=== PATIENT | female | born 1980 | race Caucasian/White ===

== ENCOUNTER 2020-01-10 14:23 | Emergency (ER) | payer OTHER, SELFPAY ==
--- NOTE | 2020-01-10 14:27 | ED.GENADULT ---
HPI - General Adult General Chief complaint: Extremity Injury, Lower Stated complaint: Left leg pain Time Seen by Provider: 01/10/20 14:27 Source: patient Mode of arrival: ambulatory Limitations: no limitations History of Present Illness HPI narrative: 39-year-old female patient presents to the [facility] with complaints of left lower leg pain since this morning when she woke up. Patient states that most of the pain is behind the left knee. Patient states couple months ago she did fracture her left patella and injured her left ACL. Patient denies getting surgery at that time. Patient denies take anything for the pain since this morning. Patient states it hurts worse when trying to straighten it or walking on it. Patient denies any injury to the leg or the knee recently. Related Data Home Medications Medication Instructions Recorded Confirmed Unable to Obtain Home Medications 01/10/20 01/10/20 Allergies Allergy/AdvReac Type Severity Reaction Status Date / Time amoxicillin [From Amoxil] Allergy Swelling Verified 01/10/20 14:43 Sulfa (Sulfonamide Allergy Swelling Verified 01/10/20 14:44 Antibiotics) Review of Systems Review of Systems: Narrative: CONSTITUTIONAL: Denies fever, chills, or sweats. EYES: Denies visual changes, redness, or discharge. ENT: Denies rhinorrhea, congestion, sore throat, or otalgia. CARDIOVASCULAR: Denies chest pain, palpitations, or edema. RESPIRATORY: Denies cough or dyspnea. GASTROINTESTINAL: Denies abdominal pain, nausea, vomiting, or diarrhea. GENITOURINARY: Denies dysuria or hematuria. SKIN: Denies rash or itching. MUSCULOSKELETAL: Denies back pain, joint pain, or myalgia. Positive left lower leg pain NEUROLOGIC: Denies headache, numbness, or weakness. PSYCHIATRIC: Denies anxiety or depression. [facility] Past Medical History Medical History (Updated 01/10/20 @ 14:59 by NAVARRO Conde) Fracture of left patella With ACL injury Surgical History Surgical History (Updated 01/10/20 @ 14:55 by NAVARRO Conde) H/O: hysterectomy History of Social History Social History Gender identity (if verbalized by the patient): Female Comments At the time of my signature I agree with nursing past medical history, surgical, social, and family history. There is no relevant family history pertinent to the presenting complaint. Exam Narrative: Exam Narrative: GENERAL: Well-appearing, well-nourished, and in no acute distress. HEAD: Normocephalic, atraumatic. EYES: PERRLA and EOMI. ENT: Nares clear, no rhinorrhea or epistaxis. Mucous membranes moist. NECK: Supple. No lymphadenopathy CHEST: Clear to auscultation. No respiratory distress. HEART: Regular rate and rhythm. No murmur heard. Normal peripheral pulses. ABDOMEN: Soft, nontender, nondistended, normal active bowel sounds. EXTREMITIES: Patient is able to bear weight and ambulate but does have increased pain to the left lower leg and knee pain. No surface trauma, STS, or obvious effusion. Patient does have an obvious knot that is palpated to the posterior left knee. Patient does have tenderness to this area but more tenderness noted to the left posterior calf. There is swelling noted to the left lower leg from the knee downward as compared to the right lower leg. No obvious warmth or erythema is noted. The L knee is without obvious asymmetry or deformity when compared to the R knee. Patient is able to do deep knee bend with symmetry, pain when trying to fully extend knee, no pain with internal and external rotation. No tendernss to palpation of the patella, no effusion or ballottement. No tenderness over the infrapatellar tendon. No tenderness over the medial or lateral joint lone ot the medial or lateral tibial plateaus. no tenderness over the proximal fibular head. no tenderness, fullness, or mass of the popliteal fossa. No quadriceps tenderness. No laxity of the A
[2020-01-10 14:36] VITALS: BP 123/73; PULSE 82; RESP 16; TEMP 37.2; O2SAT 100
== END 2020-01-10 14:53 | disposition short-term general hospital (02) ==
PROVIDERS: Emergency Provider Nurse Practitioner Family
DX: M79.662 Pain in left lower leg (principal)
CPT/HCPCS: 99202; G0463

== ENCOUNTER 2020-01-10 15:09 | Emergency (ER) | payer OTHER, SELFPAY ==
--- NOTE | ~2020-01-10 | US_ITS ---
EXAMINATION: US venous doppler [facility] DATE: 01/10/2020 16:15 INDICATION: Left lower limb swelling. TECHNIQUE: Grayscale ultrasound images without and with compression and Doppler ultrasound images of the left lower extremity veins were obtained. COMPARISON: None. FINDINGS: The visualized portions of left common femoral vein, profunda (deep) femoral vein, femoral vein, popl iteal vein, peroneal veins, posterior tibial veins, and greater saphenous vein outflow are patent. Th ere is a small Cook's cyst. IMPRESSION: 1. No deep venous thrombosis. 2. Small left-sided Cook's cyst. Reviewed, dictated and finalized at location A. [employer]
[2020-01-10 15:17] VITALS: BP 105/60; PULSE 89; RESP 14; TEMP 36.7; O2SAT 99
--- NOTE | 2020-01-10 16:51 | ED.EXTPRO ---
HPI - Extremity Problem General Chief complaint: Extremity Problem,Nontraumatic Stated complaint: left leg swelling Time Seen by Provider: 01/10/20 15:24 Source: patient Mode of arrival: ambulatory Limitations: no limitations History of Present Illness HPI Narrative: 39-year-old with a history of patellar fracture in the left knee here with complaints of pain and swelling behind the left knee for past few days. Patient states that she recently moved to [place] and has no primary doctor here yet. Patient states that she went to urgent care initially and was later referred to ER for rule out DVT. She denies any chest pain, shortness of breath. Complaint: extremity pain (Left knee) Onset (ago): day(s) (1) Severity scale (1-10): 5 Quality: aching Relieving factors: nothing Exacerbating factors: walking Related Data Home Medications Medication Instructions Recorded Confirmed Unable to Obtain Home Medications 01/10/20 01/10/20 Allergies Allergy/AdvReac Type Severity Reaction Status Date / Time amoxicillin [From Amoxil] Allergy Swelling Verified 01/10/20 15:20 Sulfa (Sulfonamide Allergy Swelling Verified 01/10/20 15:20 Antibiotics) Review of Systems Review of Systems: All systems reviewed & are unremarkable except as noted in HPI and below Constitutional: Constitutional: Reports no additional constitutional complaints Eyes: Eyes: Reports no additional eye complaints ENT: Reports system reviewed and no additional complaints, except as documented Cardiovascular: Cardiovascular: Reports no additional cardiovascular complaints Gastrointestinal: Gastrointestinal: Reports as per HPI Musculoskeletal: Musculoskeletal: Reports as per HPI PMFSH Past Medical History Medical History Fracture of left patella With ACL injury Surgical History Surgical History H/O: hysterectomy History of Social History Social History Gender identity (if verbalized by the patient): Female Exam Narrative: Exam Narrative: GENERAL: Well-appearing, well-nourished, and in no acute distress. HEAD: Normocephalic, atraumatic. EYES: PERRLA and EOMI.. NECK: Supple. CHEST: Clear to auscultation. No respiratory distress. HEART: Regular rate and rhythm. No murmur heard. Normal peripheral puls EXTREMITIES: Normal range of motion. No edema. Examination of the left knee showed no evidence of joint swelling mild tenderness in the popliteal area. SKIN: Warm, dry, no rash. NEURO: No focal deficits. Alert and oriented x3. PSYCH: Normal mood and affect. Course Course Emergency Course: Inform patient about her ultrasound findings. Advised her to take pain medication as prescribed. Vital Signs Vital signs: Vital Signs Temperature 36.7 C 01/10/20 15:17 Pulse Rate 89 01/10/20 15:17 Respiratory Rate 14 01/10/20 15:17 Blood Pressure 105/60 01/10/20 15:17 Pulse Oximetry 99 01/10/20 15:17 Temperature 36.7 C 01/10/20 15:17 Pulse Rate 89 01/10/20 15:17 Respiratory Rate 14 01/10/20 15:17 Blood Pressure 105/60 01/10/20 15:17 Pulse Oximetry 99 01/10/20 15:17 MDM - Extremity (Nontraumatic) Imaging Data Radiologist's impression: ITS Impressions Venous Doppler Study 01/10/20 16:35 IMPRESSION: 1. No deep venous thrombosis. 2. Small left-sided Cook's cyst. Discharge Plan Discharge Prescriptions: No Action Unable to Obtain Home Medications RF: 0
[2020-01-10 17:20] VITALS: BP 110/76; PULSE 82; RESP 17; O2SAT 100
== END 2020-01-10 17:21 | disposition home or self-care (01) ==
PROVIDERS: Emergency Provider Family Medicine
DX: M25.562 Pain in left knee (principal); M71.22 Synovial cyst of popliteal space [Baker], left knee
CPT/HCPCS: 93971; 99284